=== PATIENT | male | born 1950 | race Caucasian/White ===

== ENCOUNTER → 2016-07-14 | Outpatient (CLI) | payer MEDICARE, BC ==
--- NOTE | ~2016-07-14 | US85 ---
[facility] A Service of [facility] RADIOLOGY TEXT RESULTS PATIENT: KATE QUINTANILLA LOCATION: CNIV : 48 UNIT #: [id number] AGE: [address]: Isaías Rosas MD SEX: M ORDER DR: [id number] [facility] [address]. [place], [place] [address] [id number] MR#: [id number] #: [id number] NAME: KATE QUINTANILLA. : 1950 SEX: M STUDY DATE/TIME: 07/14/2016 11:11 UNIT: CNIV ROOM: STUDY DESCRIPTION: [facility] Unilat or [facility] Stdy Attending Physician: Isaías Rosas M.D. Referring Physician: Isaías Rosas M.D. Ordering Physician: Isaías Rosas M.D. Primary Care Physician: Isaías Rosas M.D. MEDICAL IMAGING REPORT This report is preliminary unless electronic signature is present EXAM Right lower extremity venous duplex 07/14/2016 HISTORY Right lower extremity pain and swelling in calf for 1 month. Injury to calf, hit with a baseball 1 month ago. Evaluate for deep vein thrombosis. TECHNIQUE Venous ultrasound examination of the right lower extremity was performed using grayscale, spectral Doppler and color flow Doppler imaging. FINDINGS The examination is negative. There is no evidence of right lower extremity deep venous thrombus from the groin to the lower calf. Visualized greater saphenous vein is also patent. IMPRESSION Negative examination. No evidence of right lower extremity deep venous thrombosis. Dictated by... Armaan Veliz M.D. THIS IS AN ELECTRONICALLY VERIFIED REPORT Armaan Veliz M.D. at 07/15/2016 9:01 AM MARLYN/jessenia TD: 07/14/2016 12:56 JOB #: [id number] MEDICAL IMAGING REPORT [facility] A Service [facility] RADIOLOGY TEXT RESULTS PATIENT: KATE QUINTANILLA LOCATION: CNIV : 48 UNIT #: [id number] AGE: [address]: Isaías Rosas MD SEX: M ORDER DR: Page 1 of 1 COPY
== END | disposition home or self-care (01) ==
LOC: CNIV 10:32
DX: R60.0 Localized edema (principal); S89.91XA Unspecified injury of right lower leg, initial encounter
CPT/HCPCS: 93971